=== PATIENT | female | born 1955 | race Caucasian/White ===

== ENCOUNTER 2020-05-29 06:15 | Day surgery (SDC) | payer OTHER ==
[~2020-05-29] VITALS: Ht 157.5 cm; Wt 50.9 kg
--- NOTE | ~2020-05-29 | OR ---
[facility] [address], [place] [address] Draft DATE OF OPERATION: 05/29/2020 SURGEON: Jessee Lopez MD PREOPERATIVE DIAGNOSES: 1. Persistent epigastric pain, unresponsive to PPI medication. 2. History of complex colonic polyp resected in [place], [place] in 2012. POSTOPERATIVE DIAGNOSES: 1. No evidence of persistent polyp of colon (tattooed located in the rectosigmoid). 2. Normal upper endoscopy except for mild distal esophagitis. PROCEDURE: 1. Esophagogastroduodenoscopy with biopsy. 2. Total colonoscopy to cecum. ANESTHESIA: Intravenous sedation, fentanyl 150 mcg and Versed 4 mg. INDICATIONS: This 64-year-old white woman is a patient of Dr. Pulido. She underwent colonoscopy in 2012 and an upper endoscopy in 2011 in [place], [place]. Colonoscopy showed a very large polyp, which was and tattooed as she describes it. A one year followup showed no sign of residual polyp. She additionally has a self-described "stomach inflammation, for which she was prescribed PPI medication, which was initially helpful to her." The patient notes that her stomach hurts "all the time and quite." This is mostly in the epigastric area. She has undergone appendectomy and hysterectomy, but not cholecystectomy in the past. She has no family history of biliary problems. She is admitted at this time to undergo upper endoscopy to better characterize the epigastric pain problem as well as colonoscopy for surveillance regarding the polyp problem. The risks of bleeding, infection and perforation were related to upper endoscopy and colonoscopy has been reviewed with her, she understands and wished to proceed. FINDINGS: Upper endoscopy showed essentially no findings to account for symptoms. There was perhaps mild distal esophagitis that was minimal. The flap valve was good. Stomach and duodenum were normal. Colonoscopy showed a well prepped colon. There was no sign of polyp, diverticular formation, or other problem. There was an evidence of prior tattoo of the rectosigmoid, PATIENT NAME: PHIL UMANZOR OPERATIVE REPORT DATE OF : 57 REPORT #: [id number] PHYSICIAN: JESSEE LOPEZ MD PCP: ANTONIETA PULIDO DO REPORT IS CONFIDENTIAL AND NOT TO BE RELEASED WITHOUT AUTHORIZATION [facility] [address], [place] [address] Draft but no sign of residual polyp. DESCRIPTION OF PROCEDURE: The patient was brought to the endoscopy suite and given topical Hurricaine spray, hypopharyngeal anesthesia, and placed in the lateral decubitus position. She was given intravenous sedation to the point of slurred speech and nystagmus, and a full cardiopulmonary monitoring. A bite block was placed and after satisfactory sedation, the Olympus upper endoscope was passed in the hypopharynx. The vocal cords appeared normal. Scope was advanced to the esophagus throughout its length, it was normal on first examination. The scope was passed to the stomach, which was insufflated with air. Rugal folds were normal. Antral motility was normal. The pylorus was normal. The scope was passed through into the duodenum, which was normal. Biopsies were taken of the duodenum to assess for celiac disease. The scope was withdrawn and biopsies were then taken of the antrum for both KERRI and pathologic testing. There are few small polyps in the antrum, which were inconsequential and probably related to PPI use. Withdrawal of scope to the proximal stomach in retroflexed view showed no sign of hiatal hernia and a reasonably good flap valve. Scope was straightened, withdrawn, and the distal esophagus evaluated showing mild distal esophagitis, but not much and certainly no Thorne's epithelium or other problems. Biopsies were obtained. The scope was withdrawn further and the mid esophageal area was biopsied as well. Careful withdrawal in the proximal esophagus showed no other findings. Plans were then made for colonoscopy. Additional sedation was given and digital rectal examination undertaken, which was normal. An Olympus video colonoscope was passed in the rectum and manipulated throughout the colon; ultimately, intubating the cecum itself. The ileocecal valve and appendiceal orifice were normal. Scope was withdrawn from that point and examination throughout undertaken, showing no sign of abnormality; specifically no polyps, diverticular formation, colitis, or cancer. Retroflexed view was normal as well. The scope was removed and the patient was taken to the recovery room in good condition. Not mentioned previously was the finding of a prior tattoo nba and what appeared to be the rectosigmoid indicative of prior polyp resection. There was no sign of residual polyp. She was taken to the recovery room in good condition having suffered no complication. CONCLUSION DIAGNOSES: 1. Essentially normal upper endoscopy, minimal distal esophagitis with good flap valve. 2. Normal colon, no sign of recurrent polyp. PLAN: Consideration will be made for ultrasound evaluation of the gallbladder and if negative, consideration of CCK HIDA test, as I suspect biliary disease in her case given her persistent epigastric pain despite PPI use and no findings on upper endoscopy. As regard to colonoscopy, we would repeat in 5 years based on her prior history of complex polyp sooner if needed related to symptoms. She will continue to follow with Dr. Pulido PATIENT NAME: PHIL UMANZOR MICKEY OPERATIVE REPORT DATE OF : 57 REPORT #: [id number] PHYSICIAN: JESSEE LOPEZ MD PCP: ANTONIETA PULIDO DO REPORT IS CONFIDENTIAL AND NOT TO BE RELEASED WITHOUT AUTHORIZATION [address] [place], [place] [address] Draft as well. MD RASHEED Freeman/GIFTY /[id number] cc: Antonieta Pulido DO Copies: ANTONIETA PULIDO DO ~ PATIENT NAME: UMANZORPHIL JO OPERATIVE REPORT DATE OF : 57 REPORT #: [id number] PHYSICIAN: JESSEE LOPEZ MD PCP: ANTONIETA PULIDO DO REPORT IS CONFIDENTIAL AND NOT TO BE RELEASED WITHOUT AUTHORIZATION
[~2020-05-29 06:15] MED LIST: MACRODANTIN100 MG PO; OMEPRAZOLE20 MG PO; PROBIOTIC1 EAC1 PO; TOPROL XL25 MG PO
--- NOTE | 2020-05-29 08:39 | NUR ---
05/29/20 0839 Keri Johnson 0833- PT ARRIVES TO PACU ALERT AND ORIENTED. PT REPORTS 3/10 ABD CRAMPING AND NAUSEA. PT ENCOURAGED TO PASS FLATUS TO SEE IF THAT WOULD HELP WITH THE SYMPTOMS. RESP EVEN AND UNLABORED. OXYGEN SAT HIGH 90'S TO 100% ON 3L VIA NC. 0837- PT IS ABLE TO PASS FLATUS. PT REPORTS HER NAUSEA TO BE DECREASING.
--- NOTE | 2020-05-29 08:48 | NUR ---
PT ALERT, ORIENTED AND LEFT EARLY THIS AM TO ARRIVE FROM [facility]. PT HAS HAD PREVIOUS SCOPES, HAD FEW QUESTIONS. HER SIS IN LAW WILL PROVIDE RIDE HOME FOLLOWING DC. PT DECLINED PRAYER, GAVE BLESSING AND WILL FOLLOW
--- NOTE | 2020-05-30 14:05 | PATH ---
[facility] [address], [place] [address] Signed SPECIMEN(S): A DUODENUM SPECIMEN(S): B ANTRUM/PYLORUS SPECIMEN(S): C DISTAL LOWER ESOPHAGUS SPECIMEN(S): D MID MIDDLE ESOPHAGUS SPECIMEN SOURCE: A. DUODENUM B. ANTRUM/PYLORUS C. DISTAL LOWER ESOPHAGUS D. MID MIDDLE ESOPHAGUS CLINICAL HISTORY: GERD, history of polyps. Normal colon, chronic esophagitis. MICROSCOPIC DESCRIPTION: Histologic sections of all submitted blocks are examined by light microscopy. These findings, together with the gross examination, support the pathologic diagnosis. FINAL PATHOLOGIC DIAGNOSIS: A. Duodenum, biopsy: - Benign duodenal mucosa, negative for specific diagnostic abnormality. B. Antrum/pylorus, biopsy: - Benign gastric-type mucosa with focal slight chronic inflammation. - Negative for evidence of Helicobacter organisms on routine HE stained sections. C. Distal lower esophagus, biopsy: - Benign esophageal mucosa, negative for increased epithelial eosinophils. - Negative for glandular mucosa. D. Middle esophagus, biopsy: - Benign esophageal mucosa, negative for increased epithelial eosinophils. JVR:[id number]:[id number] GROSS DESCRIPTION: Four specimens are received in four containers, labeled "DG." A. The specimen, labeled "DG, duodenum biopsy," is received in formalin and consists of two cano soft tissue fragments that measure 0.1-0.2 cm in greatest dimension. The specimen is entirely submitted in cassette (A1). B. The specimen, labeled "DG, antrum biopsy," is received in formalin and consists of two cano soft tissue fragments that measure 0.2 cm in greatest dimension. The specimen is entirely submitted in PATIENT NAME: PHIL UMANZOR PATHOLOGY DATE OF : 57 REPORT #: [id number] PHYSICIAN: TRAN GALEAS PCP: ANTONIETA PULIDO DO REPORT IS CONFIDENTIAL AND NOT TO BE RELEASED WITHOUT AUTHORIZATION [facility] [address], [place] [address] Signed cassette (B1). C. The specimen, labeled "DG, distal lower esophagus biopsy," is received in formalin and consists of three cano soft tissue fragments that measure 0.2-0.4 cm in greatest dimension. The specimen is entirely submitted in cassette (C1). D. The specimen, labeled "DG, mid esophagus biopsy," is received in formalin and consists of one cano soft tissue fragment that measures 0.2 cm in greatest dimension. The specimen is entirely submitted in cassette (D1). JS (under the direct supervision of a pathologist) The Gross Description was prepared using a voice recognition system. The report was reviewed for accuracy; however, sound-alike word errors, addition and/or deletions may occur. If there is any question about this report, please contact Client Services. PERFORMING LABORATORY: The technical component was performed by [facility], [address] [place] [id number] (It Architecture Consultant: Yvonne Cardenas MD; CLIA# [id number]). Professional interpretation was performed by [facility] [address] ([employer] Consultant: Shaw Mckeon M.D.). Diagnostician: Shaw Mckeon MD Pathologist Electronically Signed 05/30/2020 Copies: ~ PATIENT NAME: PHIL UMANZOR MICKEY PATHOLOGY DATE OF : 57 REPORT #: [id number] PHYSICIAN: TRAN PATHOLOGY PCP: ANTONIETA PULIDO DO REPORT IS CONFIDENTIAL AND NOT TO BE RELEASED WITHOUT AUTHORIZATION
== END 2020-05-29 09:40 | disposition home or self-care (01) ==
LOC: DS 06:15 → OPS 06:15 → DS 06:45 → OPS 09:40
PROVIDERS: ATTEND Surgery
PROC: 0DB28ZX Excision of Middle Esophagus, Via Natural or Artificial Opening Endoscopic, Diagnostic (ICD-10-PCS; 2020-05-29)
PROC: 0DB38ZX Excision of Lower Esophagus, Via Natural or Artificial Opening Endoscopic, Diagnostic (ICD-10-PCS; 2020-05-29)
PROC: 0DJD8ZZ Inspection of Lower Intestinal Tract, Via Natural or Artificial Opening Endoscopic (ICD-10-PCS; 2020-05-29)
PROC: 0DB98ZX Excision of Duodenum, Via Natural or Artificial Opening Endoscopic, Diagnostic (ICD-10-PCS; principal; 2020-05-29 06:45)
PROC: 0DB78ZX Excision of Stomach, Pylorus, Via Natural or Artificial Opening Endoscopic, Diagnostic (ICD-10-PCS; 2020-05-29 06:45)
DX: Z12.11 Encounter for screening for malignant neoplasm of colon (principal); K29.50 Unspecified chronic gastritis without bleeding; K21.9 Gastro-esophageal reflux disease without esophagitis; Z79.899 Other long term (current) drug therapy; Z90.710 Acquired absence of both cervix and uterus; Z90.49 Acquired absence of other specified parts of digestive tract; Z86.010 Personal history of colon polyps
CPT/HCPCS: 99153; G0500; J2250; J3010; J7121

== ENCOUNTER 2020-07-11 11:00 | Observation (INO) | payer OTHER ==
[~2020-07-11] VITALS: Ht 157.5 cm; Wt 57.6 kg
[2020-07-12] MEDS ORDERED: IBUPROFEN600 MG PO (15:42)
[2020-07-12] MEDS ORDERED: ACETAMINOPHEN500 MG PO (15:42)
[2020-07-12] MEDS ORDERED: OXYCODON-ACETA1 EAC2 PO (15:42)
--- NOTE | 2020-07-13 21:29 | EKG ---
[facility] [address] [facility] [place] [address] Signed Normal sinus rhythm Normal ECG No previous ECGs available Confirmed by GIDEON STEWART MD ([id number]) on 07/13/2020 9:29:47 PM Electronically Signed By: GIDEON STEWART MD 07/13/209 PATIENT NAME: UMANZORPHIL JO Electrocardiogram DATE OF : 57 PHYSICIAN: GIDEON STEWART MD REPORT #: [id number] REPORT IS CONFIDENTIAL AND NOT TO BE RELEASED WITHOUT AUTHORIZATION
--- NOTE | 2020-07-13 21:32 | EKG ---
[facility] [address] [facility] [place] [address] Signed Normal sinus rhythm Normal ECG When compared with ECG of 12-JUL-2020 04:53, (Unconfirmed) Nonspecific T wave abnormality now evident in Anterior leads Confirmed by GIDEON STEWART MD ([id number]) on 07/13/2020 9:32:36 PM Electronically Signed By: GIDEON STEWART MD 07/13/20 213 PATIENT NAME: PHIL UMANZOR Electrocardiogram DATE OF : 57 PHYSICIAN: GIDEON STEWART MD REPORT #: [id number] REPORT IS CONFIDENTIAL AND NOT TO BE RELEASED WITHOUT AUTHORIZATION
--- NOTE | 2020-07-14 09:01 | OR ---
[facility] [address] [place], [place] [address] Signed DATE OF OPERATION: 07/12/2020 SURGEON: Jessee Lopez MD PREOPERATIVE DIAGNOSIS: Acute acalculous cholecystitis. POSTOPERATIVE DIAGNOSIS: Acute acalculous cholecystitis. PROCEDURES: 1. Laparoscopic cholecystectomy with intraoperative cholangiogram. 2. Surgeon-directed fluoroscopy. ANESTHESIA: General endotracheal, Clyde Aleksandra, SISAL PICKER and local 10 mL of 0.25% Marcaine with epinephrine. INDICATIONS: This 64-year-old white woman is a patient of Santana Pulido, who lives in [place], [place]. She has been evaluated by me and Dr. Pulido for persistent epigastric and right subcostal pain. Upper endoscopy and colonoscopy were unrevealing as to the source of the problem. Gallbladder ultrasound was normal. A CCK-HIDA test was performed in late June, which showed an ejection fraction of 28%. Consideration was made for elective outpatient cholecystectomy; however, yesterday she presented to the office with severe epigastric and right subcostal pain, highly suggestive of acute cholecystitis. She was admitted to the hospital, given intravenous antibiotics, parental pain medication and so forth and is now to undergo laparoscopic cholecystectomy with cholangiogram for presumed acute acalculous cholecystitis. She understands the risks of bleeding, infection, bile duct injury, and most importantly failure to cure her symptoms. She understands and she wished to proceed. FINDINGS: The gallbladder was whitish in appearance and with both chronic and subacute inflammation. There was an enlarged pericholecystic lymph node. The cystic duct was relatively large, though there was no sign of stone within the biliary tree on cholangiogram nor in the gallbladder itself. There was cholesterolosis and chronic inflammatory change of the mucosa. The liver appeared normal. There were no other findings of concern. Electronically Signed By: JESSEE LOPEZ MD 07/14/20 0901 PATIENT NAME: PHIL UMANZOR OPERATIVE REPORT DATE OF : 57 REPORT #: [id number] PHYSICIAN: JESSEE LOPEZ MD PCP: SANTANA PULIDO DO REPORT IS CONFIDENTIAL AND NOT TO BE RELEASED WITHOUT AUTHORIZATION [facility] [address] [place], [place] [address] Signed DESCRIPTION OF PROCEDURE: The patient was brought to the operating room, given a general endotracheal anesthetic. Preoperative antibiotic Ancef had been given. Sequential compression device stockings used. The abdomen was prepared with a chlorhexidine solution and draped sterilely. She did have infraumbilical incision, extended from the umbilicus to the symphysis pubis. Nevertheless, the infraumbilical site was chosen for initial incision. An infraumbilical incision was made and using an open Edvin cannula technique, the abdomen was entered without problem. Using a Edvin cannula technique, pneumoperitoneum was achieved to a level of 14 mmHg of carbon dioxide gas. Intraabdominal inspection showed no sign of ascites or carcinomatosis. The tip of the gallbladder was noted, and it was found to be pale white in appearance. The liver appeared normal. There were no other findings of note. Three additional trocars were placed in usual configuration in the subxiphoid, right midclavicular, and right anterior axillary line. The gallbladder was elevated cephalad and retracted laterally and using blunt electrocautery dissection the triangle of Calot was dissected free. There appeared to be acute edema and inflammation of the triangle of Calot. An enlarged pericholecystic lymph node was noted. The common duct was easily visualized and certainly avoided. Once the cystic duct was fully dissected free and clips were applied across the cystic artery and allowing it for its division, a clip was applied across gallbladder cystic duct junction and a transverse choledochotomy was made in the cystic duct. Retrograde milking of the duct showed dark bile. There was no sign of stone or debris. Using the Quintero type cholangiocatheter, intraoperative cholangiography was undertaken showing free flow of contrast in the biliary tree with prompt emptying into the duodenum. There was no sign of filling defect, biliary anomalies, or other problem. The catheter was removed. The cystic duct was triply clipped and divided, and the gallbladder dissected free in a retrograde fashion using electrocautery. There was no entry into the gallbladder. The gallbladder was extracted through the infraumbilical port site without problem, opened on the back table and found to have cholesterolosis and chronic inflammatory change with no sign of neoplasm. Irrigation was undertaken. The subhepatic space showing no sign of bile leak, bleeding, or other problems. The trocars removed under direct visualization showing no significant bleeding. The infraumbilical and epigastric ports were reapproximated with interrupted 0-Vicryl suture. A 10 mL of 0.25% Marcaine with epinephrine was injected locally. The skin closed with interrupted 3-0 Vicryl. Steri-Strips were applied. The patient was ultimately extubated and transferred to the recovery room in good condition, having suffered no complications. Sponge, needle, and instrument counts reported correct x3. Jessee Lopez MD Electronically Signed By: JESSEE LOPEZ MD 07/14/20 0901 PATIENT NAME: PHIL UMANZOR OPERATIVE REPORT DATE OF : 57 REPORT #: [id number] PHYSICIAN: JESSEE LOPEZ MD PCP: SANTANA PULIDO DO REPORT IS CONFIDENTIAL AND NOT TO BE RELEASED WITHOUT AUTHORIZATION [address] [place] [address] Signed /GIFTY /[id number] cc: Santana Pulido DO Copies: SANTANA PULIDO DO ~ Electronically Signed By: JESSEE LOPEZ MD 07/14/20 0901 PATIENT NAME: PHIL UMANZOR OPERATIVE REPORT DATE OF : 57 REPORT #: [id number] PHYSICIAN: JESSEE LOPEZ MD PCP: SANTANA PULIDO DO REPORT IS CONFIDENTIAL AND NOT TO BE RELEASED WITHOUT AUTHORIZATION
--- NOTE | 2020-07-14 09:01 | DS ---
[facility] [address] [place], [place] [address] Signed ADMISSION DATE: 07/11/2020 DISCHARGE DATE: 07/13/2020 REASON FOR ADMISSION: This 64-year-old white woman is from [facility] and is a patient Dr. Pulido. She has been evaluated for persistent epigastric pain, which has included colonoscopy, upper endoscopy, ultrasound and ultimately CCK-HIDA test. Her CCK-HIDA test showed an ejection fraction of 28%. She has had persistent, unrelenting epigastric pain that may well be related to gallbladder problem. She presented to the office anticipating a conference for elective outpatient cholecystectomy, but was quite markedly afflicted and on that basis was admitted for further evaluation and care. PERTINENT PHYSICAL EXAMINATION: GENERAL: Pleasant white woman, who is thin but in moderate to significant distress with epigastric pain. HEENT: Trachea is midline. CHEST: Clear. HEART: Regular without murmur. ABDOMEN: Tender in the epigastric area. LABORATORY STUDIES: Showed a white count of only 3.9, hematocrit 35.5, platelets 203,000. Chem profile essentially normal. Liver enzymes were normal. Amylase 63. COVID-19 rapid test negative. HOSPITAL COURSE: She was admitted and given fluid resuscitation, IV antibiotics, parenteral pain medication. On July 12, 2020, underwent laparoscopic cholecystectomy with cholangiogram. She was noted to have chronically inflamed gallbladder and mucosa with chronic inflammatory change and cholesterol debris. Cholangiogram was normal. Liver was also normal. Postoperatively, she felt much better on the evening of operation, however, she had substernal pain which was evaluated by EKG, chest x-ray, troponin level and treatment with nitroglycerin. All the studies were negative. Nitroglycerin though given three times was of no real benefit. Oral intake of antacid does seem to resolve her problem entirely. By morning, she was feeling totally well. Her longstanding epigastric pain is resolved entirely and she is eating without problem. Her substernal pain is completely gone. Electronically Signed By: JESSEE LOPEZ MD 07/14/20 0901 PATIENT NAME: PHIL UMANZOR DISCHARGE SUMMARY DATE OF : 57 REPORT #: [id number] PHYSICIAN: JESSEE LOPEZ MD PCP: SANTANA PULIDO DO REPORT IS CONFIDENTIAL AND NOT TO BE RELEASED WITHOUT AUTHORIZATION [facility] [address] [place], [place] [address] Signed She is discharged home in good condition. DISCHARGE DIAGNOSES: 1. Acute on chronic acalculous cholecystitis, status post laparoscopic cholecystectomy with intraoperative cholangiogram July 12, 2020. 2. Postoperative substernal chest pain without sign of cardiac component, resolved with antacid, not recurring. FOLLOWUP PLAN: She is return to see me in approximately a month. DISCHARGE MEDICATIONS: Will include: 1. Tylenol 1 g p.o. q.6 hours p.r.n. pain. 2. Motrin 600 mg p.o. q.6 hours p.r.n. pain. 3. Percocet 7.5/325 one p.o. q.6 hours p.r.n. for pain. 4. She will resume her usual medications including Toprol-XL 25 mg p.o. daily, Prilosec 20 mg p.o. b.i.d. (soon to discontinue most likely). 5. Add lactobacillus probiotic one p.o. daily. MD RASHEED Freeman/YUMIKOL /[id number] cc: Santana Pulido DO Copies: SANTANA PULIDO DO ~ Electronically Signed By: JESSEE LOPEZ MD 07/14/20 0901 PATIENT NAME: UMANZORPHIL JO DISCHARGE SUMMARY DATE OF : 57 REPORT #: [id number] PHYSICIAN: JESSEE LOPEZ MD PCP: SANTANA PULIDO DO REPORT IS CONFIDENTIAL AND NOT TO BE RELEASED WITHOUT AUTHORIZATION
--- NOTE | 2020-07-14 09:01 | HP ---
[facility] [address] [place], [place] [address] Signed ADMISSION DATE: 07/11/2020 REASON FOR ADMISSION: Acute acalculous cholecystitis. HISTORY OF PRESENT ILLNESS: This 64-year-old white woman has been under my care for the past few weeks. On June 14, she underwent a gallbladder ultrasound for suspicion of biliary disease. The ultrasound was negative for stones. She subsequently, on June 27, underwent a CCK HIDA test, which showed an ejection fraction of only 28%, but without reproduction of her symptoms. She notes that she had persistent epigastric pain symptoms at that time, however. She had undergone upper endoscopy and colonoscopy on May 29, 2020, both of which were unremarkable for her complaint of persistent epigastric and right subcostal pain. With the findings of the CCK HIDA test, I had advised consideration of cholecystectomy electively and it was planned for next week. A phone conference was organized for today in the office. She notes that over the past 2 weeks, she has had progressive inability to eat well due to her persistent symptoms and she was seen in my office late in the day today where she was found to have tenderness in epigastric and right subcostal area, but without palpable mass, and findings highly suggestive of progression of chronic calculous cholecystitis to acute cholecystitis. On that basis, she is admitted for further evaluation and care. Her admission lab studies showed a normal white count of only 3.6. Liver enzymes normal, amylase normal, and a COVID rapid test negative. Nevertheless, she appears highly probable to have acute acalculous cholecystitis, worsened since the evaluation was undertaken initially. SOCIAL HISTORY: She lives alone in [place]. She does not smoke or drink alcohol. REVIEW OF SYSTEMS: She denies any shortness of breath or chest pain. She does have epigastric and right subcostal pain. She has no dysuria, hematuria, hematemesis, or blood per rectum. PHYSICAL EXAMINATION: GENERAL: Pleasant white woman, who looks to be in [id number] discomfort. Trachea is midline. Electronically Signed By: JESSEE LOPEZ MD 07/14/20 0901 PATIENT NAME: PHIL UMANZOR HISTORY AND PHYSICAL DATE OF : 57 REPORT #: [id number] PHYSICIAN: JESSEE LOPEZ MD PCP: ANTONIETA PULIDO DO REPORT IS CONFIDENTIAL AND NOT TO BE RELEASED WITHOUT AUTHORIZATION [facility] [address] [place], [place] [address] Signed CHEST: Clear. HEART: Regular. ABDOMEN: Nondistended. She has tenderness in the epigastric and right subcostal area, but no mass and there is no ascites. EXTREMITIES: Show no clubbing, cyanosis, or edema. LABORATORY STUDIES: Show a white count of 3.9, hematocrit 35.5, and platelets 203,000. Chem profile normal except for a glucose of 106. Liver enzymes normal. Amylase 63. Serology showing negative COVID-19 on rapid 2-hour test. ASSESSMENT: Clinically, she has acute acalculous cholecystitis. I could be wrong in this diagnosis, but I do not think so. I have recommended fluid resuscitation, IV antibiotics, parenteral pain medication, and consideration for cholecystectomy preferred by laparoscopic approach tomorrow. The risks of bleeding, infection, bile duct injury, need for open procedure, and importantly failure to cure her symptoms or possible need for other indicated procedures, which as of yet or unsuspected was all reviewed. She understands and wished to proceed. MD RASHEED Freeman/GIFTY /[id number] Copies: ~ Electronically Signed By: JESSEE LOPEZ MD 07/14/20 0901 PATIENT NAME: PHIL UMANZOR MICKEY HISTORY AND PHYSICAL DATE OF : 57 REPORT #: [id number] PHYSICIAN: JESSEE LOPEZ MD PCP: ANTONIETA PULIDO DO REPORT IS CONFIDENTIAL AND NOT TO BE RELEASED WITHOUT AUTHORIZATION
--- NOTE | 2020-07-14 16:01 | PATH ---
[facility] [address] [place], [place] [address] Signed SPECIMEN(S): A GALLBLADDER SPECIMEN SOURCE: A. GALLBLADDER CLINICAL HISTORY: Acute cholecystitis, upper epigastric pain. FINAL PATHOLOGIC DIAGNOSIS: Gallbladder, cholecystectomy: - Benign gallbladder with focal mild chronic mucosal inflammation (cholecystitis). - Negative for calculi. JVR:misael:[id number] MICROSCOPIC EXAMINATION: Histologic sections of all submitted blocks are examined by light microscopy. These findings, together with the gross examination, support the pathologic diagnosis. GROSS DESCRIPTION: The specimen, labeled "DG," and designated on the requisition "gallbladder," is received in formalin and consists of Specimen: Previously opened gallbladder. Dimensions: 7.8 x 3.5 x 1.2 cm. Serosa: Green-cano and smooth. Cystic Duct: Unobstructed, inked black and submitted in cassette (A1). Calculi: Not grossly identified. Mucosa: Green-cano and velvety. Wall thickness: 0.3 cm. Lymph node: No pericystic lymph nodes are grossly identified. Additional: Cystic lesion at the fundus (1.5 x 1.4 x 1.2 cm) located 6.3 cm from cystic duct margin. Muffle Worker sections are submitted in cassette (A1). AC (under the direct supervision of a pathologist) The Gross Description was prepared using a voice recognition system. The report was reviewed for accuracy; however, sound-alike word errors, addition and/or deletions may occur. If there is any question about this report, please contact Client Services. PERFORMING LABORATORY: PATIENT NAME: PHIL UMANZOR PATHOLOGY DATE OF : 57 REPORT #: [id number] PHYSICIAN: TRAN GALEAS PCP: ANTONITEA PULIDO DO REPORT IS CONFIDENTIAL AND NOT TO BE RELEASED WITHOUT AUTHORIZATION [address] [place], [place] [address] Signed The technical component was performed by [facility], [address] [place] [address] (Supervisor Model Making: Yvonne Cardenas MD; CLIA# [id number]). Professional interpretation [place] [address]. Diagnostician: Shaw Mckeon MD Pathologist Electronically Signed 07/14/2020 Copies: ~ PATIENT NAME: PHIL UMANZOR PATHOLOGY DATE OF : 57 REPORT #: [id number] PHYSICIAN: TRAN GALEAS PCP: ANTONIETA PULIDO DO REPORT IS CONFIDENTIAL AND NOT TO BE RELEASED WITHOUT AUTHORIZATION
== END 2020-07-13 11:10 | disposition home or self-care (01) ==
LOC: EDSTATUS 11:00 → MS 17:57
PROVIDERS: ADMIT Surgery; ATTEND Surgery
PROC: 0FT44ZZ Resection of Gallbladder, Percutaneous Endoscopic Approach (ICD-10-PCS; principal; 2020-07-11)
PROC: BF13YZZ Fluoroscopy of Gallbladder and Bile Ducts using Other Contrast (ICD-10-PCS; 2020-07-11)
DX: K81.0 Acute cholecystitis (principal); K81.1 Chronic cholecystitis; G89.18 Other acute postprocedural pain; R07.89 Other chest pain; K21.9 Gastro-esophageal reflux disease without esophagitis; F41.9 Anxiety disorder, unspecified; Z20.828 Contact with and (suspected) exposure to other viral communicable diseases; Z79.899 Other long term (current) drug therapy
CPT/HCPCS: 00790; 36415; 71045; 74300; 80053; 82150; 82247; 82465; 83615; 84100; 84478; 84484; 84550; 85025; 86850; 86900; 86901; 86920; 93005; 93010; 96374; 96375; A9270; C9803; G0378; G0379; J0131; J0690; J1100; J1885; J2001; J2270; J2405; J2704; J3010; J7121; Q9967; U0003

== ENCOUNTER 2023-09-02 13:42 | Observation (INO) | payer MEDICARE, BC ==
[~2023-09-02] VITALS: Ht 157.5 cm; Wt 58.3 kg
[~2023-09-02 13:42] MED LIST changes: +ACETAMINOPHEN500 MG PO; +IBUPROFEN600 MG PO; +OXYCODON-ACETA1 EAC2 PO
[2023-09-02 14:01] LABS: BASOPHILS 1.2 % (0-2); EOSINOPHILS 1.9 % (0-6); HEMATOCRIT 39.2 % (35.0-50.0); HEMOGLOBIN 13.1 g/dL (12.0-18.0); LYMPHOCYTES 39.5 % (24-44); MCH 34.8 (27-36); MCHC 33.4 g/dl (30-36); MCV 104.2 fl (81-99); NEUTROPHILS 44.4 % (39-80); PLATELET COUNT 267 K/uL (140-440); RBC 3.77 M/ul (4.3-5.7); RDW 13.4 (10.5-15.0)
[2023-09-02 14:24] LABS: INR 0.96 (0.80-1.30); PROTIME 12.4 Sec (11.2-14.2)
[2023-09-02 14:26] LABS: ALBUMIN 4.1 g/dL (3.4-5.0); ALBUMIN/GLOBULIN RATIO 0.95 (1.1-2.4); ALKALINE PHOSPHATASE 51 U/L (46-116); ALT (SGPT) 18 U/L (14-59); ANION GAP 15.8 (7-21); AST (SGOT) 30 U/L (15-37); BILIRUBIN, TOTAL 0.5 ng/dL (0.2-1.0); BUN/CREATININE RATIO 7.22 (6.0-28.6); CALCIUM 9.2 mg/dL (8.5-10.1); CARBON DIOXIDE 27 mmol/L (21-32); CHLORIDE 97 mmol/L (98-107); CREATININE, SERUM 0.83 mg/dL (0.55-1.02); GLOMERULAR FILTRATION RATE,EST 78 mL/min (>60); POTASSIUM 3.8 mmol/L (3.5-5.1); PROTEIN, TOTAL 8.4 g/dL (6.4-8.2); UREA NITROGEN 6 mg/dL (7-18)
[2023-09-02 14:27] LABS: PARTIAL THROMBOPLASTIN TIME 25.9 Sec (22.9-41.3)
[2023-09-02 14:45] LABS: AMPHETAMINES, URINE NEGATIVE (NEGATIVE); BARBITURATES, URINE NEGATIVE (NEGATIVE); BENZODIAZEPINE, URINE NEGATIVE (NEGATIVE); BUPRENORPHINE, URINE NEGATIVE (NEGATIVE); CANNABINOID, URINE NEGATIVE (NEGATIVE); COCAINE, URINE NEGATIVE (NEGATIVE); ECSTASY, URINE NEGATIVE (NEGATIVE); FENTANYL, URINE NEGATIVE (NEGATIVE); METHADONE, URINE NEGATIVE (NEGATIVE); OPIATES, URINE NEGATIVE (NEGATIVE); OXYCODONE, URINE NEGATIVE (NEGATIVE); PHENCYCLIDINE, URINE NEGATIVE (NEGATIVE)
[2023-09-02] MEDS ORDERED: ASPIRIN 81 MG CHEW PO ONE (16:00)
[2023-09-02] MEDS ORDERED: ATORVASTATIN 40 MG TAB PO ONE (16:00)
[2023-09-02] MEDS ORDERED: ondansetron HCL 4 MG/2 ML VIAL IV PRN (17:15)
[2023-09-02] MEDS ORDERED: ACETAMINOPHEN 325 MG TAB PO PRN (17:15)
[2023-09-02 17:49] VITALS: BP 125/75
--- NOTE | 2023-09-02 18:34 | NUR ---
PT ADMITTED FROM ED. ADMISSION INTAKE COMPLETED. SOUMYA SWALLOW EVAL COMPLETED AND PASSED, PT PROVIDED WITH PUDDING. PT DENIES OTHER NEEDS AT THIS TIME.
--- NOTE | 2023-09-02 19:58 | NUR ---
PATIENT USED THE CALL LIGHT. SBA TO THE BATHROOM AND BACK TO BED. THIS RAIL[employer] CARPENTER OFFERED TO GET A WALKER FOR HER. PATIENT STATED IM OKAY. THIS RAILCAR CARPENTER OBSERVED PATIENT NOT SURE OF HOW WELL SHE WALK. I OFFREED MY HAND TO WALKED WITH HER. PATIENT IS BACK IN BED. DENIES FURTHER NEEDS AT THIS TIME. FRESH ICE WATER REFILLED. FWW IS NOW AVAILABLE IN THE ROOM.
[2023-09-02 20:26] VITALS: BP 129/84
--- NOTE | 2023-09-02 20:44 | EKG ---
[facility] [address] [place] [address] Signed Normal sinus rhythm Normal ECG When compared with ECG of 13-JUL-2020 00:56, No significant change was found Confirmed by Beth Pop MD () on 09/02/2023 8:43:43 PM Electronically Signed By: BETH POP MD 09/02/232043 PATIENT NAME: UMANZORPHIL Electrocardiogram DATE OF : 57 PHYSICIAN: BETH POP MD REPORT #: [id number] REPORT IS CONFIDENTIAL AND NOT TO BE RELEASED WITHOUT AUTHORIZATION
[2023-09-02 21:05] VITALS: BP 129/71
--- NOTE | 2023-09-02 21:10 | NUR ---
PATIENT PROVIDED WITH SANDWICH SNACK BOX.
--- NOTE | 2023-09-02 22:20 | NUR ---
BATHROOM LIGHT ON. SBA PATIENT WASHED HANDS AND BACK TO BED. DENIES OTHER NEEDS AT THIS TIME. CALL LIGHT WITHIN REACH.
[2023-09-03 00:50] VITALS: BP 129/71
[2023-09-03 01:31] VITALS: BP 130/85
[2023-09-03 05:59] LABS: BASOPHILS 0.7 % (0-2); EOSINOPHILS 3.2 % (0-6); HEMATOCRIT 38.1 % (35.0-50.0); HEMOGLOBIN 12.8 g/dL (12.0-18.0); LYMPHOCYTES 29.6 % (24-44); MCH 34.6 (27-36); MCHC 33.5 g/dl (30-36); MCV 103.4 fl (81-99); MONOCYTES 15.2 % (0-12); NEUTROPHILS 51.3 % (39-80); PLATELET COUNT 226 K/uL (140-440); RBC 3.69 M/ul (4.3-5.7); RDW 12.9 (10.5-15.0)
[2023-09-03 06:15] LABS: ALBUMIN 3.5 g/dL (3.4-5.0); ALBUMIN/GLOBULIN RATIO 0.88 (1.1-2.4); ANION GAP 10.9 (7-21); BILIRUBIN, TOTAL 0.7 ng/dL (0.2-1.0); BUN/CREATININE RATIO 6.66 (6.0-28.6); CALCIUM 9.2 mg/dL (8.5-10.1); CREATININE, SERUM 0.9 mg/dL (0.55-1.02); MAGNESIUM 1.4 mg/dL (1.8-2.4); PHOSPHORUS, INORGANIC 4.3 mg/dL (2.5-4.9); POTASSIUM 3.9 mmol/L (3.5-5.1); PROTEIN, TOTAL 7.5 g/dL (6.4-8.2)
[2023-09-03 06:16] LABS: CHOLESTEROL/HDL RATIO 3.1
[2023-09-03 06:25] VITALS: BP 136/88
[2023-09-03] MEDS ORDERED: MAGNESIUM SULFATE 4 GM/100 ML BAG IV ONE (08:15)
[2023-09-03] MEDS ORDERED: LORazepam 0.5 MG TAB PO ONE (08:30)
[2023-09-03 08:37] VITALS: BP 128/74
--- NOTE | 2023-09-03 09:27 | NUR ---
STOCK TURNER IN ROOM.
[2023-09-03 09:45] VITALS: BP 128/74
[2023-09-03] MEDS ORDERED: PHARMACY RENAL DOSE ADJUSTMENT 1 DOSE MISC PO SCH (12:00)
[2023-09-03 12:07] VITALS: BP 124/77
[2023-09-03] MEDS ORDERED: ASPIRIN81 MG PO (12:56)
[2023-09-03] MEDS ORDERED: LIPITOR40 MG PO (12:57)
--- NOTE | 2023-09-03 13:47 | NUR ---
PT REPORT OF URINE SYMPTOMS FOR LAST COUPLE OF MONTHS, FOUL URINE AND BURNING. PT HAS URINE SAMPLE IN LAB. DISCUSSED WITH DR. POP AND TELEPHONE ORDER TO RUN U/A, HOLD DISCHARGE UNTIL RESULTS. PT UPDATED ON PLAN, TELEMETRY REMOVED.
[2023-09-03 13:52] LABS: BILIRUBIN, URINE NEGATIVE (negative); BLOOD/HGB, URINE NEGATIVE (Negative); KETONE, URINE NEGATIVE (Negative); LEUK ESTERASE, URINE NEGATIVE (negative); NITRITE, URINE POSITIVE (negative); PH, URINE 6.5 (5-7)
[2023-09-03 14:07] LABS: BACTERIA, URINE 1+ /hpf (negative); CASTS, URINE NONE SEEN \\lpf; COLLECTION TYPE, URINE CLEAN CATCH; CRYSTALS, URINE NONE SEEN (0-1+); EPITHELIAL CELLS, URINE SQUAMOUS 3+ /lpf (0-1+); RED BLOOD CELLS, URINE 0-1 /hpf (0-5); REFLEX CULTURE, URINE No (No)
--- NOTE | 2023-09-03 14:14 | NUR ---
PATIENT IV SITE REMOVED WITH CATHETER TIP INTACT. PATIENT TOLERATED WELL. PATIENT DISCHARGE VITALS SIGNS COMPLETE. PATIENT IS GETTING DRESSED AT THIS TIME. CALL LIGHT AND PERSONAL BELONGINGS ARE WITHIN REACH.
[2023-09-03] MEDS ORDERED: CEFDINIR300 MG PO (14:58)
[2023-09-04] MEDS ORDERED: [UNRECOGNIZED DRUG - OTHER] IM SCH (09:00)
[2023-09-04] MEDS ORDERED: INFLUENZA VACCINE IM SCH (09:00)
== END 2023-09-03 15:30 | disposition home or self-care (01) ==
LOC: ED 13:42 → MS 13:44
PROVIDERS: Internal Medicine; ADMIT Family Medicine; ATTEND Family Medicine
DX: G45.9 Transient cerebral ischemic attack, unspecified (principal); I10 Essential (primary) hypertension; F10.90 Alcohol use, unspecified, uncomplicated; J32.0 Chronic maxillary sinusitis; E83.42 Hypomagnesemia; E78.5 Hyperlipidemia, unspecified; Z79.899 Other long term (current) drug therapy
CPT/HCPCS: 36415; 70450; 70496; 70498; 70551; 71045; 80053; 80061; 80307; 81001; 83036; 83735; 84100; 84484; 85025; 85610; 85730; 87077; 87088; 87186; 93005; 93010; 93306; 96374; 97161; 97165; 99285-25; A9270; G0008; G0378; J3475; Q3014; Q9967

== ENCOUNTER 2024-03-09 08:31 | Day surgery (SDC) | payer MEDICARE, BC ==
[~2024-03-09] VITALS: Ht 157.5 cm; Wt 54.5 kg
[~2024-03-09 08:31] MED LIST changes: +ASPIRIN81 MG PO; +CEFAZOLIN SODIUM 2 GM/20 ML SYR IV SCH; +CEFDINIR300 MG PO; +IBLOOD GLUCOSE TEST STRIP 1 EA TEST VI PRN; +LACTATED RINGER'S 1,000 ML IV SCH; +LIDOCAINE HCL 1% 5 ML SDV INJ ONE; +LIPITOR40 MG PO
[2024-03-09 08:56] VITALS: BP 129/73
[2024-03-09] MEDS ORDERED: OXYMETAZOLINE HCL 30 ML BTL NAS SCH (09:00)
[2024-03-09 09:19] LABS: BASOPHILS 0.7 % (0-2); EOSINOPHILS 3.2 % (0-6); HEMATOCRIT 39.4 % (35.0-50.0); HEMOGLOBIN 13.1 g/dL (12.0-18.0); LYMPHOCYTES 28.5 % (24-44); MCH 34.1 (27-36); MCHC 33.3 g/dl (30-36); MCV 102.4 fl (81-99); MONOCYTES 13.3 % (0-12); NEUTROPHILS 54.3 % (39-80); PLATELET COUNT 282 K/uL (140-440); RBC 3.85 M/ul (4.3-5.7); RDW 13.7 (10.5-15.0)
[2024-03-09 09:30] LABS: ANION GAP 13.9 (7-21); BUN/CREATININE RATIO 11.76 (6.0-28.6); CALCIUM 9.6 mg/dL (8.5-10.1); CREATININE, SERUM 0.85 mg/dL (0.55-1.02); POTASSIUM 3.9 mmol/L (3.5-5.1)
[2024-03-09] MEDS ORDERED: fentaNYL citrate 100 MCG/2 ML VIAL ONE (10:16)
[2024-03-09] MEDS ORDERED: DEXAMETHASONE SOD PHOS 4 MG/ML VIAL ONE (10:16)
[2024-03-09] MEDS ORDERED: LIDOCAINE HCL 2% 5 ML SDV ONE (10:16)
[2024-03-09] MEDS ORDERED: MIDAZOLAM HCL 2 MG/2 ML VIAL ONE (10:16)
[2024-03-09] MEDS ORDERED: ondansetron HCL 4 MG/2 ML VIAL ONE (10:16)
[2024-03-09] MEDS ORDERED: KETOROLAC TROMETHAMINE 30 MG/ML VIAL ONE (10:16)
[2024-03-09] MEDS ORDERED: propofoL 200 MG/20 ML VIAL ONE (10:16)
[2024-03-09 11:38] VITALS: BP 118/70
[2024-03-09 12:30] VITALS: BP 118/70
[2024-03-09] MEDS ORDERED: fentaNYL citrate 100 MCG/2 ML VIAL IV PRN (12:30)
[2024-03-09] MEDS ORDERED: ondansetron HCL 4 MG/2 ML VIAL IV PRN (12:30)
[2024-03-09] MEDS ORDERED: NALOXONE HCL 0.4 MG SYR IV PRN (12:30)
--- NOTE | 2024-03-09 14:35 | OR ---
[facility] [address] [place], [place] [address] Signed DATE OF OPERATION: 03/09/2024 SURGEON: Matt Vu MD PREOPERATIVE DIAGNOSIS: Chronic right maxillary sinusitis. POSTOPERATIVE DIAGNOSIS: Chronic right maxillary sinusitis. PROCEDURE: Right maxillary sinusotomy, nasal antral window. ANESTHESIA: General LMA. Preop. PREOP HISTORY: Phil is a 68-year-old lady with chronic sinus problems. She has had extensive sinus surgery by Dr. Palacio about seven years ago. Since then, she has had chronic sinus infections, mainly right-sided, unresponsive to appropriate medications. CAT scans have been performed showing complete opacification of the right maxillary sinus with some calcification. Other sinuses are completely clear. She is taken to the operating for the above-mentioned procedures. OPERATIVE PROCEDURE AND FINDINGS: After informed consent, the patient was taken to the operating room, placed in the supine position where general LMA anesthesia was induced. The patient and procedure were verified. The patient received preoperative intravenous Ancef and intranasal oxymetazoline. Preop CT was viewed throughout. The nasal cavity was inspected. Left side clear. Right side also clear by visual inspection. A curved ring curette was passed through the middle meatus into this maxillary sinus and copious fungal inspissated secretions removed. The sinus was basically filled with material consistent with chronic sinus infections, cottage cheese type material, this was all removed with a curette. Sinus completely curetted clear. Minimal bleeding. Sinus was suctioned clear of blood and secretions. Hemostasis was verified. The patient was awakened, extubated, transported to the recovery room in good condition. No complications. BLOOD LOSS: Minimal. Electronically Signed By: MATT VU MD 03/09/24 1435 PATIENT NAME: PHIL UMANZOR MICKEY OPERATIVE REPORT DATE OF : 57 REPORT #: [id number] PHYSICIAN: MATT VU MD PCP: ANTONIETA PULIDO DO REPORT IS CONFIDENTIAL AND NOT TO BE RELEASED WITHOUT AUTHORIZATION [facility] [address] [place] [id number] Signed SPECIMEN: To pathology. DRAINS: No drains. PACKING: No packing. Matt Vu MD GC/YUMIKOL /[id number] Copies: ~ Electronically Signed By: MATT VU MD 03/09/24 1435 PATIENT NAME: ASHLEY UMANZORROLLY AREVALO OPERATIVE REPORT DATE OF : 57 REPORT #: [id number] PHYSICIAN: MATT VU MD PCP: ANTONIETA PULIDO DO REPORT IS CONFIDENTIAL AND NOT TO BE RELEASED WITHOUT AUTHORIZATION
== END 2024-03-09 12:40 | disposition home or self-care (01) ==
LOC: OPS 08:31 → DS 08:31 → OPS 10:00
PROVIDERS: Nurse Anesthetist, Certified Registered; ATTEND Otolaryngology
PROC: 09BQ0ZZ Excision of Right Maxillary Sinus, Open Approach (ICD-10-PCS; principal; 2024-03-09 10:00)
DX: J32.0 Chronic maxillary sinusitis (principal)
CPT/HCPCS: 36415; 80048; 85025; J0690; J1100; J1885; J2001; J2250; J2405; J2704; J3010; J7121